=== PATIENT | female | born 1990 ===

== ENCOUNTER 2019-01-27 00:20 | Emergency (ER) | payer SELFPAY ==
[~2019-01-27] VITALS: Ht 160 cm; Wt 46.7 kg
[2019-01-27 00:43] VITALS: BP 129/74
--- NOTE | 2019-01-27 01:25 | NUR ---
ANESTHESIA TECHNICIAN TO DR. MAGALLANES FOR RECTAL EXAM
== END 2019-01-27 01:54 | disposition home or self-care (01) ==
LOC: ER 00:32
DX: K62.89 Other specified diseases of anus and rectum (principal); Z60.2 Problems related to living alone
CPT/HCPCS: 99282; A4606